=== PATIENT | female | born 1945 | race Caucasian/White ===

== ENCOUNTER 2019-01-25 05:04 | Inpatient (IN) ==
--- NOTE | 2019-01-02 10:52 | Anesthesiology Consultation ---
Date of Service January 02, 2019 Assessment & Plan (1) Encounter for pre-operative examination: Plan: PCP CLEARANCE 01/20: "Patient is a moderate risk for intermediate risk surgery. Received a cardiology clearance." CARDIO CLEARANCE 01/20: "She has reasonable functional status, despite her arthritic knees and tells me that she goes up and down 12 steps in her house several times daily, without noticing any cardiac symptoms. She had a benign cardiac examination today. We should proceed with her knee surgery, accepting the cardiovascular risk involved. Her recent stress test did not reveal any ischemia or infarction and her EF was felt to be normal as well. I have asked for an echocardiogram after her surgery; her surgery should not be postponed on account of this. I am not absolutely certain as to whether EKG reveals an age- indeterminate inferior infarct or there are small R waves prior to the Q waves in the inferior leads; in any case, as mentioned above, her nuclear scan did not reveal any infarction at least not a transmural one." Chart Review Chart Review: Acceptable Risk for Surgery and Patient seen in Pre Admission Testing Teaching & Discussion Instructed NPO after midnight before surgery, except medications with 15 cc of water. Medication instructions provided according to the PAT guidelines. History Surgery Operation Date: 01/25/19 08:50 Proposed Procedures p Left Total Knee Arthroplasty - Dandy Cole MD Height/Weight Height: 5 ft 2 in Weight: 81.4 kg Allergies Allergy/AdvReac Type Severity Reaction Status Date / Time No Known Allergies Allergy Unknown ` Verified 12/26/18 08:15 Medications Home Medications Medication Instructions Recorded Confirmed Last Taken ascorbic acid (vitamin C) [Vitamin 500 mg PO QDD 12/26/18 12/26/18 Unknown C] atenolol 50 mg PO BID 12/26/18 12/26/18 Unknown atorvastatin [Lipitor] 10 mg PO Q OTHER DAY 12/26/18 12/26/18 Unknown calcium carbonate [Calcium 600] 600 mg PO QDD 12/26/18 12/26/18 Unknown cholecalciferol (vitamin D3) 1,000 unit PO QDD 12/26/18 12/26/18 Unknown [Vitamin D3] cyanocobalamin (vitamin B-12) 500 mcg PO QDD 12/26/18 12/26/18 Unknown [Vitamin B-12] glucosamine-chondroitin [Osteo 1 tab PO QDL 12/26/18 12/26/18 Unknown Bi-Flex] lisinopril 40 mg PO QAM 12/26/18 12/26/18 Unknown lngrsqtkclrj-uya-uqdk-FA-vit K 1 tab-cap PO QDL 12/26/18 12/26/18 Unknown [Multi For Her] omega 4-pwe-ovo-fish oil [Fish Oil] 1 tab PO BID 12/26/18 12/26/18 Unknown pyridoxine (vitamin B6) [Vitamin 100 mg PO QDD 12/26/18 12/26/18 Unknown B-6] raloxifene [Evista] 60 mg PO QDL 12/26/18 12/26/18 Unknown Past Medical History Medical History Abnormal EKG On 2009 pre-op workup. Had echo and stress test. 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 - no further treatment DJD (degenerative joint disease) of knee Hiatal hernia High cholesterol Hypertension Obesity Sleep apnea CPAP HS Past Surgical History Surgical History History of kidney surgery left History of right hip replacement Hx of bilateral cataract extraction Hx of section Hx of dilation and curettage x2 Hx of endoscopic sinus surgery Also involved tooth Hx of lumpectomy left breast Hx of tonsillectomy Hx of tubal ligation Past Anesthesia History No Hx of Anesthesia Complications and No Family Hx of Anesthesia Complications History of PONV No Motion Sickness Screening History of Motion Sickness: No Social History Smoking Status: Never smoker Do You Dip or Chew Tobacco: No Hx Alcohol Use: Yes alcohol intake frequency: holidays/special occasions only Hx Substance Use: No Exercise / Class Metabolic Activity III < 4 Walking/Shop/Light housework (+SOB, denies CP with 1 flight of stairs) Review of Systems Pt denies any recent chest pain, shortness of breath, palpitations, fever or URI. +Cough/congestion last week (~12/23, seen by PCP, flu swab negative) Physical Exam Vital Signs BP: 129/85 P: 80bpm SPO2: 95% RA T: 98.6 F R: 16 ENMT Mouth: + dental bridge (upper Right) and + small oral opening; no chipped teeth and no loose teeth Thyromental Distance: > or= 3.5 Finger Breadths (4) Mallampati Class: IV Neck normal visual inspection; neck extension not limited Respiratory normal respiratory effort Auscultation: lungs clear to auscultation bilaterally Cardiovascular Rate/Rhythm: regular rate and regular rhythm Heart Sounds: no murmur Vessels: no carotid bruit Testing Electrocardiogram Date: 01/02/19 Findings: + NSR @ (77) Left axis deviation. T wave abnormality, consider lateral ischemia. When compared with EKG of 02/17/2011, criteria for inferior infarct are no longer present. T wave inversion now seen in V4-V6. Chest X-Ray Date: 01/02/19 Hiatal hernia. Otherwise negative study. Stress Test Date: 01/16/19 Type: nuclear Lexiscan stress EKG is not indicative of ischemia. There is normal uptake of radioactivity on both the stress and the resting images. There is no evidence of ischemic change or old myocardial infarct. There is normal left ventricular wall motion. Calculated EF is 67%. Laboratory Results 01/02/19 11:10 01/02/19 11:10 Blood Type O Positive 01/02/19 11:10 Antibody Screen NEGATIVE 01/02/19 11:10 PT 9.9 Seconds (9.0-12.0) 01/02/19 11:10 INR 1.0 (0.9-1.1) 01/02/19 11:10 APTT 23.4 Seconds (21.0-31.0) 01/02/19 11:10 Urine Color Yellow 01/02/19 11:10 Urine Appearance Clear (Clear) 01/02/19 11:10 Urine pH 7.0 (4.5-7.5) 01/02/19 11:10 Ur Specific [place] 1.019 (1.000-1.030) 01/02/19 11:10 Urine Protein Negative (Negative) 01/02/19 11:10 Urine Glucose (UA) Negative (Negative) 01/02/19 11:10 Urine Ketones Negative (Negative) 01/02/19 11:10 Urine Nitrite Negative (Negative) 01/02/19 11:10 Ur Leukocyte Esterase Negative (Negative) 01/02/19 11:10
--- NOTE | 2019-01-02 11:07 | PAT Medication Instructions ---
Medication Instructions Date of Service January 02, 2019 Home Medications ascorbic acid (vitamin C) 500 mg PO QDD atenolol 50 mg PO BID atorvastatin [Lipitor] 10 mg PO Q OTHER DAY calcium carbonate [Calcium 600] 600 mg PO QDD cholecalciferol (vitamin D3) 1,000 unit PO QDD cyanocobalamin (vitamin B-12) 500 mcg PO QDD glucosamine-chondroitin [Osteo Bi-Flex] 1 tab PO QDL lisinopril 40 mg PO QAM ggmaidinjnyb-zjh-fekj-FA-vit K 1 tab-cap PO QDL omega 8-yev-kwr-fish oil [Fish Oil] 1 tab PO BID pyridoxine (vitamin B6) 100 mg PO QDD raloxifene [Evista] 60 mg PO QDL STOP taking 2 weeks before surgery glucosamine-chondroitin [Osteo Bi-Flex] 1 tab PO QDL omega 2-hse-gjg-fish oil [Fish Oil] 1 tab PO BID DO NOT take the morning of surgery lisinopril 40 mg PO QAM parvsdegedyc-iem-mdpk-FA-vit K 1 tab-cap PO QDL raloxifene [Evista] 60 mg PO QDL Take morning of surgery With a small sip of water, OTHERWISE NOTHING TO EAT OR DRINK AFTER MIDNIGHT: atenolol 50 mg PO BID Take evening before surgery ascorbic acid (vitamin C) 500 mg PO QDD atenolol 50 mg PO BID atorvastatin [Lipitor] 10 mg PO Q OTHER DAY calcium carbonate [Calcium 600] 600 mg PO QDD cholecalciferol (vitamin D3) 1,000 unit PO QDD cyanocobalamin (vitamin B-12) 500 mcg PO QDD pyridoxine (vitamin B6) 100 mg PO QDD Other Notes If you have any questions please call us at [phone] or [phone] or [phone] or [phone]
--- NOTE | 2019-01-02 11:42 | XRay Report ---
XR chest Pre-admission PA/Lat CLINICAL HISTORY: pat preoperative COMPARISON STUDY: No previous studies for comparison. FINDINGS: Fixed hiatal hernia. Lungs are clear. Diaphragms are smooth. IMPRESSION: Hiatal hernia. Otherwise negative study. The above report was generated using voice recognition software. It may contain grammatical, syntax or spelling errors. Electronically signed by: Jerad Washburn M.D. 01/02/2019 11:41 AM
[2019-01-02 11:53] LABS: Appearance Urine Clear (Clear); Bilirubin Urine Negative (Negative); Blood Urine Negative (Negative); Color Urine Yellow; Glucose Urine UA Negative (Negative); Ketones Urine Negative (Negative); Leukocyte Esterase Urine Negative (Negative); Nitrite Urine Negative (Negative); Protein Urine Negative (Negative); Specific Gravity Urine 1.019 (1.000-1.030); Urobilinogen Urine Negative (Negative)
[2019-01-02 11:56] LABS: Basophils # (auto) 0.01 K/uL (0-0.2); Basophils % (auto) 0.1 %; Eosinophils # (auto) 0.14 K/uL (0-0.5); Eosinophils % (auto) 1.6 %; Hematocrit (blood only) 36.8 % (37-47); Immature Granulocytes # (auto) 0.03 K/uL (0.00-0.02); Immature Granulocytes % (auto) 0.3 %; Lymphocytes # (auto) 1.58 K/uL (1.2-3.4); Lymphocytes % (auto) 17.5 %; Mean Corpuscular Hgb Conc 32.6 g/dL (32-36); Mean Corpuscular Volume 94.8 fL (80-100); Mean Platelet Volume 11.3 fL (7.4-10.4); Monocytes # (auto) 0.51 K/uL (0.11-0.59); Monocytes % (auto) 5.7 %; Neutrophils # (auto) 6.74 K/uL (1.4-6.5); Neutrophils % (auto) 74.8 %; Platelet Count 253 K/uL (130-400); RDW Coefficient of Variation 13.7 % (11.5-14.5); RDW Standard Deviation 47.4 fL (36.4-46.3); Red Blood Count 3.88 M/uL (4.2-5.4); White Blood Count 9.01 K/uL (4.8-10.8)
[2019-01-02 11:58] LABS: BUN Creatinine Ratio 18.1 (10-20); Calcium 9.1 mg/dl (8.5-10.1); Creatinine Clr Calc Pharmacy 47.2 ml/min; Est GFR (African American) 59.8; Est GFR (Non-African American) 51.6; Potassium 4.1 mmol/L (3.5-5.1)
[2019-01-02 12:03] LABS: Partial Thromboplastin Ratio 0.9; Partial Thromboplastin Time 23.4 Seconds (21.0-31.0); Prothrombin Time 9.9 Seconds (9.0-12.0)
--- NOTE | 2019-01-21 13:05 | History and Physical Report ---
DATE OF ADMISSION: 01/25/2019 PREOPERATIVE HISTORY AND PHYSICAL CHIEF COMPLAINT: Left knee pain. HISTORY OF PRESENT ILLNESS: This 73-year-old white female presents to the office with complaints of left knee pain that has been ongoing for over 2 years. Pain has become worse with time. No specific injury. She has tried oral pain medication, viscosupplementation, topical anti-inflammatories, and cortisone injections without improvement. No numbness or tingling. No catching or locking. No buckling. Pain is worse with weightbearing. It does affect her ADLs. She elects to proceed with total knee arthroplasty in hopes of alleviating her pain. Preoperative imaging has been obtained. PAST MEDICAL HISTORY: Significant for sleep apnea, use of CPAP, history of right renal carcinoma, hypertension, elevated cholesterol, hiatal hernia with reflux, osteoarthritis, and obesity. PREVIOUS SURGERIES: Renal carcinoma resection without kidney removal, tonsillectomy, , breast lumpectomy x2, sinus surgery, eyelid surgery, cataract surgery x2, right total hip arthroplasty in 2010, D and C x2, hemorrhoidectomy, rectal fissure repair, EGD, colonoscopy. FAMILY HISTORY: Significant for history of osteoporosis, hypertension, and congestive heart failure. Parents are . SOCIAL HISTORY: The patient is retired. . Lives with her . No tobacco use, no ETOH use. ALLERGIES: NKDA. CURRENT MEDICATIONS: Atenolol 50 mg daily, atorvastatin 20 mg daily, fish oil 500 mg daily, glucosamine daily, lisinopril 20 mg b.i.d., multivitamin daily, raloxifene 60 mg daily, vitamin B12, vitamin B6, vitamin C, and vitamin D3 daily, topical Voltaren gel q.i.d. p.r.n. REVIEW OF SYSTEMS: A total of 10 systems were reviewed and are significant only for the above-stated conditions. PHYSICAL EXAMINATION: GENERAL: Well-developed, well-nourished, obese, elderly white female in no acute distress. Sitting in a chair. Alert and oriented. SKIN: Warm and dry with fair turgor. No rashes or lesions. No ecchymosis or erythema. No significant intraarticular effusion. HEENT: Normocephalic, atraumatic. EYES: PERRLA, EOMI. Nares patent bilaterally without turbinate enlargement. Oropharynx without erythema or exudate. No lesions noted. Uvula midline. Oral mucosa moist. HEART: RRR. No MGR. LUNGS: Clear to auscultation bilaterally. No crackles, rhonchi or wheezing. Good air movement. ABDOMEN: Bowel sounds present x4, soft, nontender. No organomegaly. No masses. Moderately obese. MUSCULOSKELETAL: Left knee evaluation reveals no significant intraarticular effusion. She lacks about 5 degrees of terminal extension. Flexion to 90 degrees. Strength is 5/5 with fair quad tone. She is able to perform a straight leg raise. Varus alignment. Stable collateral ligaments. No defect in the patellar tendon or quadriceps tendon. There is focal discomfort with palpation over the medial joint line as well as the popliteal fossa. No significant pain over the lateral joint line. No prepatellar effusion. Negative anterior and posterior drawer. Ambulatory with an antalgic gait. NEUROLOGIC: Cranial nerves II through XII are intact. Gross sensation is intact across both lower extremities by soft touch. Peripheral pulses are 2+. DATA: Radiographic imaging previously obtained shows DJD of the medial and patellofemoral compartments. MRI previously obtained shows tricompartmental osteoarthritis. IMPRESSION: Left knee end-stage degenerative joint disease. PLAN: Approximately 20 minutes was spent with the patient reviewing operative procedure, postoperative recovery, physical therapy requirements and medication use. Postoperative prescriptions for Percocet and Coumadin will be provided at discharge from the hospital. Anticipate discharge to home with home health services. She already has a walker and cane. Preoperative lab work, EKG, and chest x-ray have been ordered. Medical clearance has been requested from her PCP, Dr. Browne. JULIO
[2019-01-25] MEDS ORDERED: LR 60ML/HR IV SCH (06:00)
[2019-01-25] MEDS ORDERED: TRANEXAMIC ACID 1,000 MG **IV Pre-op IV SCH (06:00)
[2019-01-25] MEDS ORDERED: LR 500ML BOLUS, THEN 15ML/HR IV SCH (06:00)
[2019-01-25] MEDS ORDERED: CEFAZOLIN 2000MG 2,000 MG/15 ML SYR IV SCH (06:00)
[2019-01-25] MEDS ORDERED: ROPIVACAINE 0.5% HCL/PF 150 MG, BUPIVACAINE 0.5% MPF 30 ML, EPINEPHrine 0.15 MG, Ketoro... INFIL SCH (06:00)
[2019-01-25] MEDS ORDERED: BUPIVACAINE 0.5 % 5 MG/1 ML PF 10ML VIAL ONE (06:26)
[2019-01-25] MEDS ORDERED: DEXAMETHASONE SOD INJ 4 MG/ML VIAL ONE (06:26)
[2019-01-25] MEDS ORDERED: BUPIVACAINE/EPINEPHRINE 0.5% MPF 1:200,000 30 ML VIAL ONE (06:26)
[2019-01-25] MEDS ORDERED: MIDAZOLAM HCL 1 MG/ML 2ML VIAL ONE (06:30)
[2019-01-25] MEDS ORDERED: LIDOCAINE HCL 2% 2 ML VIAL/AMP(20MG/ML) INFIL ONE (06:30)
[2019-01-25] MEDS ORDERED: PROPOFOL IV EMULSION 10 MG/ML 20 ML VIAL IV ONE ×2 (06:30→08:08)
[2019-01-25] MEDS ORDERED: fentaNYL citrate 100 MCG/2 ML VIAL ONE (06:30)
[2019-01-25] MEDS ORDERED: ORTHO JOINT ANESTHETIC ONE (06:34)
[2019-01-25] MEDS ORDERED: POVIDONE-IODINE OP SOLN 30 ML BTL ONE (06:35)
--- NOTE | 2019-01-25 06:37 | History & Physical Bridge Note ---
Date of Service January 25, 2019 History & Physical Bridge Note I have examined the patient, reviewed the History & Physical and in the interval since the performance of the History & Physical I have noted the following changes of clinical significance:consent verified. no changes noted
[2019-01-25] MEDS ORDERED: ePHEDrine sulfate 50 MG/ML AMP IV PRN (07:03)
[2019-01-25] MEDS ORDERED: fentaNYL citrate 100 MCG/2 ML VIAL IV PRN (07:03)
[2019-01-25] MEDS ORDERED: ONDANSETRON INJ 2 MG/ML 2 ML VIAL IV PRN ×2 (07:03→09:34)
[2019-01-25] MEDS ORDERED: ATROPINE SULFATE 0.1 MG/ML 10ML SYR IV PRN (07:03)
[2019-01-25] MEDS ORDERED: ONDANSETRON INJ 2 MG/ML 2 ML VIAL ONE (07:22)
--- NOTE | 2019-01-25 08:28 | Post Operative Brief Note ---
Immediate Post Op Note v1 Date of Surgery January 25, 2019 Pre & Post Diagnosis Operation Date: 01/25/19 07:00 Pre-Op Diagnosis: Left Knee End Stage Degenerative Joint Disease Post-Op Diagnosis: Left Knee End Stage Degenerative Joint Disease Procedure Operation Date: 01/25/19 07:00 Actual Procedures p Left Total Knee Arthroplasty(Left) - Dandy Cole MD Surgeon Dandy Cole MD [facility] Estimated Blood Loss 25 Findings Consistent with Post-Op Diagnosis
--- NOTE | 2019-01-25 08:33 | Operative Report ---
Post Operative Report Pre & Post Diagnosis Operation Date: 01/25/19 07:00 Pre-Op Diagnosis: Left Knee End Stage Degenerative Joint Disease Post-Op Diagnosis: Left Knee End Stage Degenerative Joint Disease Procedure Operation Date: 01/25/19 07:00 Actual Procedures p Left Total Knee Arthroplasty(Left) - Dandy Cole MD Surgeon KAYCEE Cole MD Moshgiach seradha Estimated Blood Loss 25 Findings Consistent with Post-Op Diagnosis Specimens see operative report Drains none Complications none Disposition Accompanied Patient To Recovery: Yes Disposition: Recovery Room Indications This 73-year-old white female presented to the office with complaints of intractable left knee pain. She had tried conservative care measures including activity modification, oral pain medication, and injection therapy, without lasting improvement. She elected to proceed with surgical intervention after being educated about potential risks and outcomes. Preoperative imaging was obtained. Description of Procedure Patient was administered a spinal anesthetic and then taken to the operating room where she was given sedation. She was prepped and draped in the usual sterile fashion. Please see Dr. Cole's operative report for specifics of the procedure. I was present for the entire case from initial patient positioning through final wound closure. Assistance was provided in tissue retraction, hemostasis, trial implant placement, final implant placement, and final wound closure. Patient was taken to the recovery room in satisfactory condition. I attest to the content of the Intraoperative Record and any orders documented therein. Any exceptions are noted below.
--- NOTE | 2019-01-25 09:00 | XRay Report ---
XR knee LT 2V routine CLINICAL HISTORY: Postoperative evaluation. COMPARISON: Left knee radiographs August 22, 2018. FINDINGS: Alignment of the total left knee arthroplasty is anatomic. There is no periprosthetic frac ture or unexpected radiopaque foreign body. Skin karen are present. IMPRESSION: Expected findings following total left knee arthroplasty Electronically signed by: Earl Arevalo M.D. 01/25/2019 8:58 AM
[2019-01-25] MEDS ORDERED: ALUMINUM/MAGNESIUM SUSP 30 ML UDC PO PRN (09:34)
[2019-01-25] MEDS ORDERED: SODIUM CHLORIDE 0.9% 1000ML 1,000 ML IV SCH (09:34)
[2019-01-25] MEDS ORDERED: BISACODYL 10 MG SUPP PR PRN (09:34)
[2019-01-25] MEDS ORDERED: MAGNESIUM HYDROXIDE SUSP 30 ML UDC PO PRN (09:34)
[2019-01-25] MEDS ORDERED: DiphenhydrAMINE HCL 50 MG/ML VIAL IV PRN (09:34)
[2019-01-25] MEDS ORDERED: NALOXONE HCL 0.4 MG/1 ML VIAL/CARP IV PRN (09:34)
[2019-01-25] MEDS ORDERED: HYDROmorphone INJ 0.5 MG/0.5 ML SYR IV PRN (09:34)
[2019-01-25] MEDS ORDERED: METOCLOPRAMIDE HCL INJ 5 MG/ML 2 ML VIAL IV PRN (09:34)
--- NOTE | 2019-01-25 09:55 | Anesthesiology Progress Note ---
Date of Service January 25, 2019 Anesthesia Post Procedure Vital Signs Vital Signs: Temp Pulse Pulse Pulse Resp BP BP 01/25/19 09:51 63 18 135/85 01/25/19 09:13 37.1 C 01/25/19 09:11 66 20 110/68 01/25/19 09:10 65 18 01/25/19 09:06 69 16 132/78 01/25/19 09:05 71 16 01/25/19 09:01 76 18 103/85 01/25/19 09:00 75 18 01/25/19 08:56 67 14 110/66 01/25/19 08:55 71 17 01/25/19 08:51 69 18 114/65 01/25/19 08:50 68 17 01/25/19 08:46 67 14 109/66 01/25/19 08:45 70 17 01/25/19 08:41 70 17 114/61 01/25/19 08:40 69 13 01/25/19 08:36 69 20 106/63 01/25/19 08:35 71 19 01/25/19 08:32 74 14 103/53 L 01/25/19 08:31 37.0 C 74 76 15 103/53 L 01/25/19 05:38 37.2 C 73 18 177/88 H Pulse Ox 01/25/19 09:51 99 01/25/19 09:13 94 01/25/19 09:11 97 01/25/19 09:10 98 01/25/19 09:06 100 01/25/19 09:05 100 01/25/19 09:01 100 01/25/19 09:00 100 01/25/19 08:56 99 01/25/19 08:55 100 01/25/19 08:51 100 01/25/19 08:50 98 01/25/19 08:46 100 01/25/19 08:45 100 01/25/19 08:41 99 01/25/19 08:40 98 01/25/19 08:36 98 01/25/19 08:35 99 01/25/19 08:32 98 01/25/19 08:31 97 01/25/19 05:38 99 Pain Intensity Left Knee: Pain Intensity: 0 Notes Mental Status: alert / awake / arousable Patient Amnestic to Procedure: Yes Nausea / Vomiting: adequately controlled Pain: adequately controlled Airway Patency, RR, SpO2: stable & adequate BP & HR: stable & adequate Hydration State: stable & adequate Neuraxial Anesthesia: was administered and sensory block is resolving Anesthetic Complications: no major complications apparent and Pt Satisfied with anesthetic care
--- NOTE | 2019-01-25 10:04 | Operative Report ---
DATE OF OPERATION: 01/25/2019 SURGEON: Dandy Cole MD. CURRICULUM ASSISTANT: August Whitten PA-C. No resident or fellow available. PREOPERATIVE DIAGNOSES: Osteoarthritis with varus flexion deformity, left knee. POSTOPERATIVE DIAGNOSES: Osteoarthritis with varus flexion deformity, left knee. OPERATION PERFORMED: Cemented left total knee replacement. SUMMARY OF IMPLANTS: Size 3 left posterior cruciate substituting femur, size 3 mobile bearing tray, oval domed 3 pegged patella, size 38 insert tibia 3 x 10 mm thick posterior cruciate substituting. Two bags of Palacos G cement. ESTIMATED BLOOD LOSS: 25 mL. PATHOLOGY: Pending on bone. PERIOPERATIVE SITUATION: Medically cleared female with intractable knee pain with physical exam, x-rays consistent with the above diagnosis. At this point in time, wants to proceed with surgical treatment. DESCRIPTION OF PROCEDURE: The patient was properly identified, site verified, consent verified. Antibiotics confirmed as being given. The left lower extremity was prepped and draped in the usual routine fashion. Anterior exposure to the femur and joint was then made. Parapatellar arthrotomy performed. The synovectomy was completed. Soft tissue release was completed. There was grade 4 disease in the patellofemoral joint and the medial compartment. The lateral compartment had grade 2 disease. The menisci and cruciates were excised. The tibia was subluxatable. The distal femur was then resected 14 mm, proximal tibia 4 mm, the extension gap was excellent. Femur was then sized to a 3 and appropriate cutting block applied in the anterior and posterior condylar and chamfer cuts made. The flexion gap was then noted to be excellent. Box cut was then made and the size 3 fit well. The tibia was then broached and reamed to a size 3 and the 10 mm spacer placed and had excellent stability in extension, mid range flexion and full flexion. Patella was resected leaving 16 mm and a 38 patella button was seated and tracked well. The area was then injected with Orthomix and then irrigated with Betadine and Pulsavac and then the permanent cemented into position. After 15 minutes, the knee was then flexed. No major cement removal was required. The trial implant spacer was removed and permanent seated. The knee tracked well. Everything looked good. The knee was then closed after irrigation with #2 Vicryl, #1 Vicryl, 2-0 Vicryl and stainless steel clips. Appropriate dressing applied. The patient transferred to Recovery Room in satisfactory condition having tolerated the procedure well. Pathology pending on bone. DVT prophylaxis with Coumadin. I attest to the content of the Intraoperative Record and any orders documented therein. Any exception s are noted below.
[2019-01-25] MEDS: DOCUSATE SODIUM 100 MG CAP PO SCH ×2 (11:46→20:50)
[2019-01-25] MEDS: LISINOPRIL 40 MG TAB PO SCH (11:47)
[2019-01-25] MEDS: ATENOLOL 50 MG TABLET PO SCH ×2 (11:47→20:50)
[2019-01-25] MEDS: MULTIVITAMIN TAB PO SCH (11:48)
[2019-01-25] MEDS: KETOROLAC TROMETHAMINE 15 MG/ML VIAL IV SCH ×3 (11:48→23:34)
--- NOTE | 2019-01-25 13:05 | Progress Note ---
DATE: 01/25/2019 SUBJECTIVE: Postop check status post left total knee replacement. The patient is doing well, sitting up in bed, already ate breakfast. She denies any chest pain, shortness of breath, fever, chills, nausea, vomiting or headache. OBJECTIVE: Vital signs are stable. She is afebrile. Neurovascular check femoral sciatic nerve is good. X-rays postop look excellent. ASSESSMENT: Doing well. We will Hep-Lock IV, mobilize. Continue care pathway.
[2019-01-25] MEDS: ACETAMINOPHEN 500 MG TAB PO SCH ×2 (13:41→22:24)
[2019-01-25] MEDS ORDERED: ORTHO WARFARIN NOMOGRAM SCH (14:00)
[2019-01-25] MEDS: CEFAZOLIN 2000MG 2,000 MG/15 ML SYR IV SCH ×2 (14:13→22:24)
[2019-01-25] MEDS ORDERED: TRANEXAMIC ACID 1,000 MG in 0.9 % SODIUM CHLORIDE 100 ML IV SCH (15:00)
[2019-01-25] MEDS ORDERED: WARFARIN SOD 5 MG TAB PO SCH (16:00)
[2019-01-25] MEDS: FERROUS GLUCONATE 324 MG TAB PO SCH (16:26)
[2019-01-25] MEDS ORDERED: SENNA 8.6 MG TAB PO SCH (21:00)
[2019-01-26] MEDS: ACETAMINOPHEN 500 MG TAB PO SCH (06:06)
[2019-01-26] MEDS: KETOROLAC TROMETHAMINE 15 MG/ML VIAL IV SCH (06:06)
[2019-01-26 06:08] LABS: Hematocrit (blood only) 31.1 % (37-47); Hemoglobin 10.2 g/dL (12.0-16.0); Mean Corpuscular Hgb Conc 32.8 g/dL (32-36); Mean Corpuscular Volume 93.7 fL (80-100); Mean Platelet Volume 11.1 fL (7.4-10.4); Platelet Count 160 K/uL (130-400); RDW Coefficient of Variation 13.8 % (11.5-14.5); RDW Standard Deviation 47.4 fL (36.4-46.3); Red Blood Count 3.32 M/uL (4.2-5.4); White Blood Count 15.08 K/uL (4.8-10.8)
[2019-01-26 06:16] LABS: INR 1.1 (0.9-1.1); Prothrombin Time 11.1 Seconds (9.0-12.0)
[2019-01-26 06:43] LABS: Calcium 8.5 mg/dl (8.5-10.1); Creatinine Clr Calc Pharmacy 51.4 ml/min; Est GFR (African American) 67.3; Potassium 4.6 mmol/L (3.5-5.1)
--- NOTE | 2019-01-26 07:08 | Progress Note ---
DATE: 01/26/2019 SUBJECTIVE: Status post left total knee replacement. The patient is doing well, was in good spirits. Denies chest pain, shortness of breath, fever, chills, nausea, vomiting, headache. OBJECTIVE: Vital signs are stable. She is afebrile. Neurovascular check femoral sciatic nerve is normal. Wound dressing clean, dry and intact. Laboratory work looks good. INR is 1.1. ASSESSMENT: Doing well. Discharge on 4 mg of Coumadin. Check INR on Wednesday. PT, OT today before discharge.
--- NOTE | 2019-01-26 07:51 | Anesthesiology Progress Note ---
Date of Service January 26, 2019 Anesthesia Post Procedure Vital Signs Vital Signs: Temp Pulse Pulse Pulse Pulse Resp BP 01/26/19 06:52 36.6 C 80 16 01/26/19 04:23 36.7 C 88 16 01/25/19 22:56 36.9 C 78 15 01/25/19 20:48 79 01/25/19 20:12 36.5 C 75 16 01/25/19 15:26 36.7 C 73 16 01/25/19 12:45 72 18 01/25/19 11:19 73 18 01/25/19 10:27 74 18 01/25/19 09:51 63 18 01/25/19 09:13 37.1 C 01/25/19 09:11 66 20 110/68 01/25/19 09:10 65 18 01/25/19 09:06 69 16 132/78 01/25/19 09:05 71 16 01/25/19 09:01 76 18 103/85 01/25/19 09:00 75 18 01/25/19 08:56 67 14 110/66 01/25/19 08:55 71 17 01/25/19 08:51 69 18 114/65 01/25/19 08:50 68 17 01/25/19 08:46 67 14 109/66 01/25/19 08:45 70 17 01/25/19 08:41 70 17 114/61 01/25/19 08:40 69 13 01/25/19 08:36 69 20 106/63 01/25/19 08:35 71 19 01/25/19 08:32 74 14 103/53 L 01/25/19 08:31 37.0 C 74 76 15 BP Pulse Ox 01/26/19 06:52 129/80 94 01/26/19 04:23 145/78 H 96 01/25/19 22:56 117/72 96 01/25/19 20:48 114/74 01/25/19 20:12 112/71 94 01/25/19 15:26 110/71 91 01/25/19 12:45 125/77 98 01/25/19 11:19 112/70 97 01/25/19 10:27 135/85 99 01/25/19 09:51 135/85 99 01/25/19 09:13 94 01/25/19 09:11 97 03/20/19 09:10 98 01/25/19 09:06 100 01/25/19 09:05 100 01/25/19 09:01 100 01/25/19 09:00 100 01/25/19 08:56 99 01/25/19 08:55 100 01/25/19 08:51 100 01/25/19 08:50 98 01/25/19 08:46 100 01/25/19 08:45 100 01/25/19 08:41 99 01/25/19 08:40 98 01/25/19 08:36 98 01/25/19 08:35 99 01/25/19 08:32 98 01/25/19 08:31 103/53 L 97 Pain Intensity Left Knee: Pain Intensity: 1 Abdomen: Pain Intensity: 5 Notes Mental Status: alert / awake / arousable and participated in evaluation Patient Amnestic to Procedure: Yes Nausea / Vomiting: adequately controlled Pain: adequately controlled Airway Patency, RR, SpO2: stable & adequate BP & HR: stable & adequate Hydration State: stable & adequate Neuraxial Anesthesia: sensory block resolved Anesthetic Complications: Pt Satisfied with anesthetic care
[2019-01-26] MEDS ORDERED: dexAMETHasone 10 MG in SYRINGE 0 ML IV SCH (08:00)
[2019-01-26] MEDS: FERROUS GLUCONATE 324 MG TAB PO SCH (08:10)
[2019-01-26] MEDS: DOCUSATE SODIUM 100 MG CAP PO SCH (08:58)
[2019-01-26] MEDS: MULTIVITAMIN TAB PO SCH (08:59)
[2019-01-26] MEDS: ATENOLOL 50 MG TABLET PO SCH (08:59)
[2019-01-26] MEDS: LISINOPRIL 40 MG TAB PO SCH (08:59)
[2019-01-26] MEDS ORDERED: ATORVASTATIN 10 MG TAB PO SCH (09:00)
[2019-01-26] MEDS: OXYCODONE HCL IR 5 MG TAB (IMMEDIATE RELEASE) PO PRN ×2 (09:12→13:22)
--- NOTE | 2019-01-26 09:12 | Discharge Summary ---
CHIEF COMPLAINT: Left knee pain. HISTORY OF PRESENT ILLNESS: A 73-year-old female underwent elective left total knee replacement. Hospital course has been uneventful. She denies any chest pain, shortness of breath, fever, chills, nausea, vomiting or headache. PAST MEDICAL HISTORY: Remarkable for sleep apnea, CPAP use; right renal carcinoma; hypertension; elevated cholesterol; hiatal hernia reflux; osteoarthritis and obesity. Also has osteopenia. PAST SURGICAL HISTORY: Include renal surgery, tonsillectomy, , breast lumpectomy, sinus surgery, eyelid surgery, cataract surgery, right total hip replacement, hemorrhoidectomy, EGD, colonoscopies. FAMILY HISTORY: Remarkable for osteoporosis, hypertension, congestive heart failure. Parents are . SOCIAL HISTORY: Reveals she is , lives with her . No tobacco or alcohol use. ALLERGIES: None. PREADMISSION MEDICATIONS: Include atenolol, atorvastatin, fish oil, glucosamine, lisinopril, multivitamin, raloxifene, vitamin B complex, vitamin C, vitamin D, p.r.n. topical Voltaren gel. She will be discharged on Coumadin and pain medication. Coumadin, Keep INR 1.8-2.2. Discharge on 4 mg. REVIEW OF SYSTEMS: Noncontributory. ASSESSMENT: Hospital course has been uneventful. At this point, I will discharge to home after PT, OT today. Discharge on 4 mg of Coumadin. Follow up in 2 weeks for staple removal.
[2019-01-26] MEDS ORDERED: WARFARIN SOD 5 MG TAB PO SCH (11:00)
== END 2019-01-26 14:14 | disposition home health service (06) | DRG 470 ==
LOC: ASU 05:04 → 3E 08:40